=== PATIENT | female | born 1995 | race Caucasian/White ===

== ENCOUNTER 2019-08-15 22:19 | Emergency (ER) | payer OTHER ==
[~2019-08-15] VITALS: Ht 175.3 cm; Wt 72.6 kg
[~2019-08-15 22:19] MED LIST: ALBU-136 IH; BECL0.089 INH; PREN1SGL25 PO; SERT50TA PO
[2019-08-15 22:26] VITALS: BP 119/65
--- NOTE | 2019-08-15 22:32 | NUR ---
PT AMBULATORY TO ROOM 4
--- NOTE | 2019-08-15 22:45 | NUR ---
X-Ray at bedside.
[2019-08-15] MEDS ORDERED: KETOROLAC 30 MG/ML VIAL IM ONE (22:55)
--- NOTE | 2019-08-15 22:55 | NUR ---
23/F presents ambulatory to ED, s/p fall into concrete after missing one step from stairs, L elbow impact. C/O L elbow pain, decreased ROM due to pain, cap refill<3s, pulse +2 distally. No head trauma/KO/nausea. Pt awake and alert, crying, in moderate pain, skin normal color warm and dry, rr even and unlabored. Hx IBS, asthma
--- NOTE | 2019-08-15 23:39 | NUR ---
PT STATES PAIN SLIGHTLY DECREASED TO 4/10.
--- NOTE | 2019-08-15 23:50 | NUR ---
PROVIDED PT WITH SHOULDER IMMOBILIZER SLING AND PLACED LEFT ARM IN POSITION OF COMFORT WITHOUT INCIDENT.
== END 2019-08-15 23:39 | disposition home or self-care (01) ==
LOC: MED 22:19
DX: M25.522 Pain in left elbow (principal); J45.909 Unspecified asthma, uncomplicated; Z79.899 Other long term (current) drug therapy; W10.9XXA Fall (on) (from) unspecified stairs and steps, initial encounter; Y93.01 Activity, walking, marching and hiking; Y92.89 Other specified places as the place of occurrence of the external cause; Y99.8 Other external cause status
CPT/HCPCS: 73080; 96372; 99283; J1885; Q0092

== ENCOUNTER 2019-09-14 08:34 | Emergency (ER) | payer OTHER ==
[~2019-09-14] VITALS: Ht 175.3 cm; Wt 72.6 kg
[2019-09-14 08:45] VITALS: BP 122/72
[2019-09-14 09:29] LABS: BASOPHILS % (AUTO) 0.2 % (0.0-2.0); EOSINOPHILS % (AUTO) 0.3 % (0.0-4.0); HEMATOCRIT 41.2 % (36-48); HEMOGLOBIN 13.9 g/dL (12.0-16.0); LYMPHOCYTES # (AUTO) 1.1 K/uL (2.5-16.5); MEAN CORPUSCULAR HEMOGLOBIN 32 pg (27-31); MEAN CORPUSCULAR HGB CONC 34 g/dL (33-37); MONOCYTES # (AUTO) 0.3 K/uL (0.8-1.0); MONOCYTES % (AUTO) 3.1 % (1.7-9.3); NEUTROPHILS # (AUTO) 8.6 K/uL (1.8-7.7); NEUTROPHILS % (AUTO) 85.4 % (42.2-75.2); PLATELET COUNT (AUTO) 212 K/uL (140-450); RED BLOOD CELL COUNT(AUTO) 4.39 MIL/uL (4.20-5.40); RED CELL DISTRIBUTION WIDTH 13.3 % (11.6-13.7)
[2019-09-14 09:52] LABS: ALBUMIN 4.3 g/dL (3.4-5.0); CARBON DIOXIDE 23.6 mmol/L (21-32); CREATININE 0.7 mg/dL (0.6-1.3); POTASSIUM 3.6 mmol/L (3.5-5.1); TOTAL BILIRUBIN 0.7 mg/dL (0.0-1.0)
[2019-09-14] MEDS ORDERED: ONDANSETRON 4 MG/2 ML VIAL IVP ONE (09:55)
[2019-09-14] MEDS ORDERED: FAMOTIDINE 20 MG TAB PO ONE (09:55)
[2019-09-14] MEDS ORDERED: DICYCLOMINE HCL LIQUID 20 MG, ALUMINUM HYD/MAG/SIMETHICONE 30 ML, LIDOCAINE VISCOUS 2% ... PO ONE ×3 (09:55)
[2019-09-14] MEDS ORDERED: LIDOCAINE VISCOUS 2% 20 ML UDC ONE (10:12)
[2019-09-14] MEDS ORDERED: ALUMINUM HYD/MAG/SIMETHICONE 30 ML UDC ONE (10:12)
[2019-09-14] MEDS ORDERED: DICYCLOMINE HCL LIQUID 10 MG/5 ML UDC ONE (10:13)
[2019-09-14] MEDS ORDERED: NACL 0.9% 1,000 ML IV ONE (10:15)
[2019-09-14] MEDS ORDERED: CAPSAICIN 0.025% CRE 60 GM TUBE TP SCH (11:40)
[2019-09-14 13:27] VITALS: BP 110/72
[2019-09-14 13:55] LABS: APPEARANCE,URINE CLEAR (CLEAR); BILIRUBIN,URINE NEGATIVE (NEGATIVE); BLOOD, URINE TRACE-L (NEGATIVE); COLOR,URINE YELLOW (YELLOW); LEUKOCYTE ESTERASE ,URINE NEGATIVE (NEGATIVE); NITRITE, URINE NEGATIVE (NEGATIVE); PH,URINE 8.5 (5.0-9.0); UGLUCOSE NEGATIVE (NEGATIVE)
[2019-09-14 14:20] LABS: RBC,URINE 0-5 /HPF (0-5); WBC,URINE 0 /HPF (0-5)
== END 2019-09-14 13:27 | disposition home or self-care (01) ==
LOC: MED 08:34
DX: R10.13 Epigastric pain (principal); R11.2 Nausea with vomiting, unspecified
CPT/HCPCS: 36415; 71045; 80053; 81001; 81025; 83690; 83880; 84484; 85025; 93005; 96374; 99285; J2405; J7030; Q0092

== ENCOUNTER 2021-05-10 23:10 | Emergency (ER) | payer OTHER ==
[~2021-05-10] VITALS: Ht 175.3 cm; Wt 67.6 kg
[~2021-05-10 23:10] MED LIST changes: +ALBU-118 IH; -ALBU-136 IH
--- NOTE | 2021-05-10 23:12 | NUR ---
Linus martin in [facility] - 05/10/21 at 2317 by ISREAL PT ELIAS MONTEJO. TAKEN TO BED 12
[2021-05-10 23:22] VITALS: BP 140/84
--- NOTE | 2021-05-10 23:27 | NUR ---
pt ambulated to bed 3
--- NOTE | 2021-05-10 23:35 | NUR ---
Dr. Sawant examining patient.
[2021-05-10] MEDS ORDERED: diphenhydrAMINE 50 MG/ML VIAL IVP ONE (23:40)
[2021-05-10] MEDS ORDERED: DEXAMETHASONE 10 MG/ML VIAL IVP ONE (23:40)
[2021-05-10] MEDS ORDERED: FAMOTIDINE 20 MG/2 ML VIAL IVP ONE (23:40)
--- NOTE | 2021-05-10 23:45 | NUR ---
pt allergic rx at 2200. had almonds. patient has itchy throat and difficulty breathing. took benadryl with no relief. pmh: asthma, IBS allergies: pecans (has anaphylactic shock)
[2021-05-11 01:25] VITALS: BP 140/84
--- NOTE | 2021-05-11 01:25 | NUR ---
Patient discharged with v/s stable. Written and verbal after care instructions given and explained. Patient verbalized understanding. Ambulatory with steady gait. All questions addressed prior to discharge. Advised to follow up with PMD.
== END 2021-05-11 01:25 | disposition home or self-care (01) ==
LOC: MED 23:10
DX: T78.40XA Allergy, unspecified, initial encounter (principal); R21 Rash and other nonspecific skin eruption; J45.909 Unspecified asthma, uncomplicated; Z91.010 Allergy to peanuts; Z79.899 Other long term (current) drug therapy; X58.XXXA Exposure to other specified factors, initial encounter
CPT/HCPCS: 96374; 96375; 99284; J1100; J1200; J3490

== ENCOUNTER 2023-10-12 17:13 | Emergency (ER) | payer OTHER ==
[~2023-10-12] VITALS: Ht 175.3 cm; Wt 59.0 kg
[2023-10-12 17:32] VITALS: BP 113/63; PULSE 75; RESP 22; TEMP 98.5; O2SAT 99
[2023-10-12 18:50] LABS: BASOPHILS % (AUTO) 0.6 % (0.0-2.0); EOSINOPHILS # (AUTO) 0.1 K/uL (0-0.4); EOSINOPHILS % (AUTO) 1.1 % (0.0-4.0); HEMATOCRIT 37.5 % (36-48); HEMOGLOBIN 12.7 g/dL (12.0-16.0); LYMPHOCYTES # (AUTO) 1.7 K/uL (2.5-16.5); LYMPHOCYTES % (AUTO) 28.5 % (20.5-51.1); MEAN CORPUSCULAR HEMOGLOBIN 31 pg (27-31); MEAN CORPUSCULAR HGB CONC 34 g/dL (33-37); MEAN CORPUSCULAR VOLUME 92.3 fL (80-94); MONOCYTES # (AUTO) 0.3 K/uL (0.8-1.0); MONOCYTES % (AUTO) 5.7 % (1.7-9.3); NEUTROPHILS # (AUTO) 3.8 K/uL (1.8-7.7); NEUTROPHILS % (AUTO) 64.1 % (42.2-75.2); PLATELET COUNT (AUTO) 206 K/uL (140-450); RED BLOOD CELL COUNT(AUTO) 4.06 MIL/uL (4.20-5.40); RED CELL DISTRIBUTION WIDTH 13.2 % (11.6-13.7)
[2023-10-12 18:51] LABS: APPEARANCE,URINE HAZY (CLEAR); BILIRUBIN,URINE NEGATIVE (NEGATIVE); BLOOD, URINE NEGATIVE (NEGATIVE); COLOR,URINE YELLOW (YELLOW); LEUKOCYTE ESTERASE ,URINE TRACE (NEGATIVE); NITRITE, URINE NEGATIVE (NEGATIVE); PH,URINE 6.5 (5.0-9.0); PROTEIN,URINE NEGATIVE (NEGATIVE); UGLUCOSE NEGATIVE (NEGATIVE); UROBILINOGEN,URINE 0.2 EU/dL (0.2 - 1)
[2023-10-12 18:54] LABS: BACTERIA,URINE 1+ /HPF (None Seen); MUCUS,URINE None Seen /LPF (None Seen); RBC,URINE 0 /HPF (0-5); SQUAMOUS EPITHELIAL CELL,UR 0-3 (FEW) /LPF (0-3 (FEW)); WBC,URINE 0-5 /HPF (0-5)
[2023-10-12 18:58] LABS: ANION GAP 12.3 (8-16); CALCIUM 8.8 mg/dL (8.5-10.1); CARBON DIOXIDE 26.8 mmol/L (21-32); CREATININE 0.6 mg/dL (0.6-1.3); POTASSIUM 4.1 mmol/L (3.5-5.1)
[2023-10-12] MEDS: ONDANSETRON 4 MG/2 ML VIAL IVP ONE (18:59)
[2023-10-12 19:13] LABS: BILIRUBIN,DIRECT 0.2 mg/dL (0.0-0.3); TOTAL BILIRUBIN 0.6 mg/dL (0.0-1.0); TOTAL PROTEIN, SERUM 7.1 g/dL (6.4-8.2)
[2023-10-12] MEDS: KETOROLAC 30 MG/ML VIAL IVP ONE (19:56)
[2023-10-12] MEDS: MORPHINE SULFATE 4 MG/ML SYR IVP ONE (21:35)
[2023-10-12] MEDS ORDERED: NAPR-337 PO (22:28)
[2023-10-12] MEDS ORDERED: ONDA-188 PO (22:28)
[2023-10-12] MEDS ORDERED: DICY20TA PO (22:28)
[2023-10-12 22:47] VITALS: BP 106/71; PULSE 65; RESP 18; TEMP 97.8; O2SAT 100
== END 2023-10-12 22:48 | disposition home or self-care (01) ==
LOC: MED 17:13
DX: K50.00 Crohn's disease of small intestine without complications (principal); J45.909 Unspecified asthma, uncomplicated; Z79.1 Long term (current) use of non-steroidal anti-inflammatories (NSAID); Z79.899 Other long term (current) drug therapy; Z91.010 Allergy to peanuts
CPT/HCPCS: 36415; 74177; 80048; 80076; 81001; 81025; 83690; 85025; 96374; 96375; 99285; J1885; J2270; J2405; Q9967